=== PATIENT | male | born 1960 | race Hispanic/Latino ===

== ENCOUNTER 2017-10-23 07:34 | Emergency (ER) | payer OTHER ==
[2017-10-23 07:38] VITALS: BP 118/79; PULSE 86; RESP 20; TEMP 97.6; O2SAT 96; BMI 30.1
[2017-10-23] MEDS ORDERED: Lidocaine 2% w Epi 1:100,000 Inj IJ ONE (08:00)
--- NOTE | 2017-10-23 08:10 | ED PDOC ---
HPI: Head Injury Time Seen by Provider: 10/23/17 07:43 Chief Complaint (Nursing): Trauma Chief Complaint (Provider): Head Injury History Per: Patient History/Exam Limitations: no limitations Injury Occurred (Timing): Hours Ago: (1.5) Loss Of Consciousness: No Additional Complaint(s): Jack Claire is a 57 year old male that presents to the ED after he sustained an injury to the top of his head this morning. Patient reports that he was in the shower when the light in his bathroom went out, and upon attempting to fix the light while the standing on edge of his still-wet bathtub, he slipped and hit his head on the spout of the shower. He reports a mild headache but denies LOC, neck pain, bleeding from ears or nose, or vision changes. Patient is unsure of last tetanus shot. PMD: None Past Medical History Reviewed: Historical Data, Nursing Documentation, Vital Signs Vital Signs: Last Vital Signs Temp 97.6 F 10/23/17 07:37 Pulse 86 10/23/17 07:37 Resp 20 10/23/17 07:37 BP 118/79 10/23/17 07:37 Pulse Ox 96 10/23/17 07:37 - Medical History PMH: No Chronic Diseases Other PMH: hx of acoustic neuroma - Family History Family History: States: Unknown Family Hx - Home Medications Home Medications: Ambulatory Orders Medication Instructions Recorded Cephalexin [cephalexin] 500 mg PO BID #10 cap 10/23/17 - Allergies Allergies/Adverse Reactions: Allergies Allergy/AdvReac Type Severity Reaction Status Date / Time No Known Allergies Allergy Verified 10/23/17 07:45 Review of Systems ROS Statement: Except As Marked, All Systems Reviewed And Found Negative Eyes: Negative for: Vision Change (denies double vision or blurry vision) ENT: Negative for: Ear Discharge (denies bleeding from ears), Nose Discharge ( denies bleeding from nose) Neurological: Positive for: Headache (mild). Negative for: Dizziness, Other ( denies LOC) Physical Exam - Reviewed Nursing Documentation Reviewed: Yes Vital Signs Reviewed: Yes - Physical Exam Appears: Positive for: Non-toxic, No Acute Distress Head Exam: Negative for: ATRAUMATIC (Patient has a 3.5 cm laceration to the top of his head. No palpable step-off.) Skin: Positive for: Normal Color, Warm Eye Exam: Positive for: Normal appearance, EOMI, PERRL ENT: Positive for: Normal ENT Inspection, TM Is/Are (unremarkable) Neck: Positive for: Normal, Supple Cardiovascular/Chest: Positive for: Regular Rate, Rhythm. Negative for: Murmur Respiratory: Positive for: Normal Breath Sounds. Negative for: Wheezing Extremity: Positive for: Normal ROM. 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 Negative for: Motor/Sensory Deficits, Aphasia, Facial Droop - ECG O2 Sat by Pulse Oximetry: 96 (RA) Pulse Ox Interpretation: Normal Medical Decision Making Medical Decision Making: Impression: Laceration Plan: * Laceration Repair * Lido with Epi 2% Patient tolerated procedure well with no immediate complications. Scribe Attestation: Documented by Steffi Falcon, acting as a scribe for Brittany De La Torre MD. Provider Scribe Attestation: All medical record entries made by the Scribe were at my direction and personally dictated by me. I have reviewed the chart and agree that the record accurately reflects my personal performance of the history, physical exam, medical decision making, and the department course for this patient. I have also personally directed, reviewed, and agree with the discharge instructions and disposition. Procedures - Laceration/Wound Repair Upper Head Wound Length (cm): 3.5 Wound's Depth, Shape: linear Anesthesia: Lidocaine w/ Epi (2%) Wound Repaired With: Sutures Suture Size/Type: 3:0, proline Number of Sutures: 4 (interrupted) Wound Complexity: Intermediate Progress: Area was actively bleeding while cleaning the would and during the procedure, patient likely cut an artery when sustaining head injury. Under sterile conditions, numbed area with Lido with Epi 2% after cleaning, placed 4 interrupted 3:0 proline sutures. Patient tolerated procedure well with no immediate complications. Disposition - Clinical Impression Clinical Impression: Scalp laceration - Patient ED Disposition Is Patient to be Admitted: No Doctor Will See Patient In The: Office Counseled Patient/Family Regarding: Diagnosis, Need For Followup, Rx Given - Disposition Referrals: Steve Briones [Outside] Disposition: Routine/Home Disposition Time: 09:17 Condition: STABLE Additional Instructions: Tdap (Tetanus Booster) given today Prescriptions: Cephalexin [cephalexin] 500 mg PO BID #10 cap Instructions: Care For Your Stitches (ED), Laceration (DC) Forms: Steve York (Hungarian) - POA Present On Arrival: Falls Or Trauma
== END 2017-10-23 09:36 | disposition home or self-care (01) ==
LOC: H.ER 07:34
DX: S01.01XA Laceration without foreign body of scalp, initial encounter (principal); W01.0XXA Fall on same level from slipping, tripping and stumbling without subsequent striking against object, initial encounter; Y93.E1 Activity, personal bathing and showering

== ENCOUNTER 2017-11-04 14:03 | Emergency (ER) | payer OTHER ==
[2017-11-04 14:03] VITALS: BMI 30.1
[2017-11-04 14:23] VITALS: BP 113/79; PULSE 64; RESP 18; TEMP 96; O2SAT 98
--- NOTE | 2017-11-04 14:45 | ED PDOC ---
HPI: Wound Care - HPI Time Seen by Provider: 11/04/17 14:37 Chief Complaint (Nursing): Suture/Staple Removal Chief Complaint (Provider): Suture/Staple Removal History Per: Patient Exam Limitations: no limitations Current Symptoms Are (Timing): Still Present Additional Complaint(s): Jack is a 57 year old male who presents to the Emergency Department for suture removal. Patient states 13 days ago (October 23) sutures were place on his left scalp. Denies pain, discharge, and headache. PMD: Provider TBD Past Medical History Vital Signs: Last Vital Signs Temp 96 F L 11/04/17 14:18 Pulse 64 11/04/17 14:18 Resp 18 11/04/17 14:18 BP 113/79 11/04/17 14:18 Pulse Ox 98 11/04/17 14:18 - Family History Family History: States: Unknown Family Hx - Home Medications Home Medications: Ambulatory Orders Medication Instructions Recorded Cephalexin [cephalexin] 500 mg PO BID #10 cap 10/23/17 - Allergies Allergies/Adverse Reactions: Allergies Allergy/AdvReac Type Severity Reaction Status Date / Time No Known Allergies Allergy Verified 10/23/17 07:45 Review of Systems Musculoskeletal: Negative for: Other (Head pain and discharge) Neurological: Negative for: Headache Physical Exam - Reviewed Nursing Documentation Reviewed: Yes Vital Signs Reviewed: Yes - Physical Exam Appears: Positive for: Non-toxic Neurologic/Psych: Positive for: Alert (Left Parietal Scalp) Comments: (+): 4 sutures (no erythema, discharge, and swelling) - ECG O2 Sat by Pulse Oximetry: 98 (RA) Pulse Ox Interpretation: Normal Procedure: Wound Repair - Time Performed Time Performed: 14:53 - Indications Indication(s):: Other (Suture Removal) - Location Location:: Left, Scalp Medical Decision Making Medical Decision Making: Time: 14:45 Suture Removal - Removed 4 sutures without difficulty Upon provider evaluation patient is medically stable, and requires no further treatment in the ED at this time. Patient will be discharged. There is agreement to discharge plan. Return if symptoms persist or worsen. Scribe Attestation: Documented by Ac Purdy, acting as a scribe for Ollie Navas PA-C Provider Scribe Attestation: All medical record entries made by the Scribe were at my direction and personally dictated by me. I have reviewed the chart and agree that the record accurately reflects my personal performance of the history, physical exam, medical decision making, and the department course for this patient. I have also personally directed, reviewed, and agree with the discharge instructions and disposition. Disposition - Clinical Impression Clinical Impression: Encounter for removal of sutures - Patient ED Disposition Is Patient to be Admitted: No - Disposition Disposition: Routine/Home Disposition Time: 14:45 Condition: STABLE Instructions: Acute Wound Care (ED) Forms: [employer] (Malay) Print Language: MACEDONIAN
== END 2017-11-04 15:11 | disposition home or self-care (01) ==
LOC: H.ER 14:03
DX: Z48.02 Encounter for removal of sutures (principal)